=== PATIENT | male | born 1955 | race Caucasian/White ===

== ENCOUNTER 2024-12-04 16:50 | Observation (INO) ==
[2024-12-04] MEDS: Droperidol 5 MG/2 ML 2 ML VIAL IV ONE ×2 (18:05→20:44)
[2024-12-04] MEDS: Pantoprazole VIAL 40 MG VIAL IV ONE (18:07)
[2024-12-04 18:31] LABS: ABS Lymphocytes 0.3 10^3/uL (1.0-4.8); ABS Monocytes 0.4 10^3/uL (0.0-1.1); ABS Neutrophils 14.6 10^3/uL (1.5-7.6); Eosinophil % 0.1 %; Hematocrit 32.4 % (38-53); Hemoglobin 11.2 g/dL (13.2-16.3); Mean Corpuscular Hemoglobin 31.3 pg (27-33); Mean Corpuscular Hgb Conc 34.5 g/dL (31-36); Mean Corpuscular Volume 90.7 fL (80-97); Mean Platelet Volume 7.1 fL (7.5-11.2); Platelet Count 283 10^3/uL (150-450); Red Blood Count 3.57 10^6/uL (4.06-5.63); Red Cell Distribution Width 13.8 % (12-17); White Blood Count 15.4 10^3/uL (3.6-10.2)
[2024-12-04 19:14] LABS: Albumin 4.6 g/dL (3.5-5.7); Albumin/Globulin Ratio 2.9 (1-3); Calcium 8.4 mg/dL (8.6-10.3); Creatinine, Serum 0.8 mg/dL (0.67-1.17); Globulin 1.6 g/dL (2-4); Potassium 3.7 mmol/L (3.5-5.0); Total Bilirubin 0.9 mg/dL (0.2-1.0); Total Protein 6.2 g/dL (6.4-8.9); eGFR CKD-EPI 96.4 (>60)
[2024-12-05] MEDS: Ondansetron 4 mg VIAL 2 MG/ML 2 ml VIAL IV PRN (00:08)
[2024-12-05] MEDS: NS 0.9% 1000 ml BAG 1,000 ML IV SCH (00:10)
[2024-12-05 06:38] LABS: Hematocrit 39.8 % (38-53); Hemoglobin 13.9 g/dL (13.2-16.3); Mean Corpuscular Hemoglobin 31.9 pg (27-33); Mean Corpuscular Hgb Conc 34.9 g/dL (31-36); Mean Corpuscular Volume 91.4 fL (80-97); Mean Platelet Volume 7.4 fL (7.5-11.2); Platelet Count 337 10^3/uL (150-450); Red Blood Count 4.36 10^6/uL (4.06-5.63); Red Cell Distribution Width 14.2 % (12-17); White Blood Count 17.1 10^3/uL (3.6-10.2)
[2024-12-05 06:57] LABS: Calcium 8.6 mg/dL (8.6-10.3); Creatinine, Serum 0.82 mg/dL (0.67-1.17); Potassium 3.7 mmol/L (3.5-5.0); eGFR CKD-EPI 95.7 (>60)
[2024-12-05 10:00] VITALS: BP 149/86
== END 2024-12-05 10:45 | disposition home or self-care (01) ==
LOC: EDHOLD 16:50 → ED 16:50 → SUATTDRO 21:21 → MEDTELE 23:01
PROVIDERS: ADMIT Internal Medicine; ATTEND Internal Medicine